=== PATIENT | female | born 1960 | race Two or more races ===

== ENCOUNTER → 2025-02-16 | Outpatient (CLI) | payer MEDICARE, OTHER, SELFPAY ==
--- NOTE | 2025-02-16 08:44 | XR_ITS ---
Examination: PA lateral chest 2 views TECHNIQUE: Upright PA lateral chest 2 views Date and time: February 16, 2025 0923 hours, comparison 03/11/2017 INDICATIONS: Preop bariatric surgery, history hypertension, history right breast cancer mastectomy FINDINGS: Mild enlargement cardiac contour. No pneumonia or pulmonary edema Prominent osteopenia IMPRESSION: Mild enlargement cardiac contour. No pneumonia or pulmonary edema
--- NOTE | 2025-02-16 09:15 | XR_ITS ---
Examination: Upper GI series with KUB Esophagram standard Fluoroscopy 32 spot fluoroscopic films of the esophagus and stomach Date and time: February 16, 2025 0929 hours INDICATIONS: Preop bariatric surgery. TECHNIQUE AND FINDINGS: Rn Plasma Center AP supine abdomen demonstrates moderate stool throughout the colon Patient swallowed thin barium with 32 spot fluoroscopic films of the esophagus stomach and duodenum Fluoroscopy 0.27 minute Numerous secondary and tertiary esophageal contractions, esophageal spasm Moderate intermittent gastroesophageal reflux Stricture at the gastroesophageal junction, presumably reflux esophagitis, 80% Sliding esophageal hernia No gastric mass deformity or ulceration. Duodenal bulb expands symmetrically IMPRESSION: Severe esophageal dysmotility Moderate intermittent gastroesophageal reflux 80% stricture the gastroesophageal junction which may relate to reflux esophagitis, clinical correlation advised. No gastric mass deformity or ulceration Negative for duodenal ulcer
[2025-02-16 10:42] LABS: Misc Send Out* See Sep Rpt
[2025-02-16 12:03] LABS: Basophils # (Auto) 0.1 Thou/mm3 (0.0-0.2); Basophils % (Auto) 1 % (0-2.5); Eosinophils # (Auto) 0.2 Thou/mm3 (0.0-0.5); Eosinophils % (Auto) 3 % (0-10); Hematocrit 41.1 % (36.0-46.0); Hemoglobin 13.6 g/dL (12.0-16.0); Immature Granulocytes Auto 0.03 Thou/mm3 (0.00-0.00); Lymphocytes # (Auto) 2.0 Thou/mm3 (1.0-4.8); Lymphocytes % (Auto) 30 % (10-50); Mean Corpuscular HGB Conc 33.1 g/dl (31.0-37.0); Mean Corpuscular Hemoglobin 34.0 pg (25.0-35.0); Mean Corpuscular Volume 103 fL (80-100); Monocytes # (Auto) 0.5 Thou/mm3 (0.0-0.8); Monocytes % (Auto) 7 % (0-12); Neutrophils # (Auto) 4.0 Thou/mm3 (1.8-7.7); Neutrophils % (Auto) 59 % (37-80); Nucleated Red Blood Cell # 0.00 Thou/mm3 (0.00-0.00); Nucleated Red Blood Cell % 0 /100 WBC (0); Platelet Count 175 Thou/mm3 (140-440); RDW Standard Deviation 52.3 fL (36.4-46.3); Red Blood Count 4.00 Miln/mm3 (4.00-5.20); White Blood Count 6.8 Thou/mm3 (3.6-11.0)
[2025-02-16 12:11] LABS: Glucose Estimated Average 123 mg/dL (80-131); Hemoglobin A1C 5.9 % Hgb (4.8-6.0)
[2025-02-16 12:12] LABS: INR 1.2 (0.9-1.3); Partial Thromboplastin Time 31.4 Seconds (22.0-36.0); Prothrombin Time 12.7 Seconds (9.0-12.2)
[2025-02-16 12:15] LABS: Parathyroid Hormone Intact 29.4 pg/ml (18.5-88.0)
[2025-02-16 12:21] LABS: Alanine Aminotransferase 18 U/L (10-49); Albumin, Serum 4.4 gm/dL (3.4-4.8); Albumin/Globulin Ratio 1.9 (1.2-2.2); Alkaline Phosphatase 69 U/L (46-116); Anion Gap 9 (7-16); Aspartate Amino Transferase 23 U/L (0-34); BUN/Creatinine Ratio 14 Ratio (12-20); Bilirubin,Total 0.5 mg/dL (0.3-1.2); Blood Urea Nitrogen 20 mg/dL (9-23); Calcium 10.7 mg/dL (8.3-10.6); Calcium (Corrected) 10.7 mg/dL (8.5-10.1); Carbon Dioxide 31.7 mMol/L (20.0-31.0); Cardiac Risk Estimate 4.9 RATIO (3.7-5.6); Chloride 103 mMol/L (98-107); Cholesterol 224 mg/dL (132-200); Creatinine (Component) 1.4 mg/dL (0.6-1.3); Free T4 (Free Thyroxine) 1.46 ng/dL (0.89-1.76); Globulin 2.3 gm/dL (2.3-3.5); Glucose 96 mg/dL (74-106); HDL Cholesterol 46 mg/dL (40-60); LDL Cholesterol,Calculated 135 mg/dL (0-130); Osmolality,Calculated 289 (275-295); Potassium 4.1 mMol/L (3.4-5.1); Sodium 144 mMol/L (136-145); Thyroid Stimulating Hormone 3.97 uIU/mL (0.55-4.78); Total Protein 6.7 gm/dL (5.7-8.2); Triglycerides 213 mg/dL (30-150); eGFR 41 See Note
[2025-02-16 12:38] LABS: Iron 78 mcg/dL (50-170); Percent Iron Saturation 25 % (20-55); Total Iron Binding Capacity 307 mcg/dL (250-425); Unsaturated Iron Binding 229 (225-295)
[2025-02-16 12:55] LABS: Folate > 24.00 ng/mL (>5.38); Vitamin B12 693 pg/mL (211-911); Vitamin D 25 Hydroxy Total 56.7 ng/mL (7.3-40.2)
[2025-02-23 07:01] LABS: Direct LDL* 132 mg/dL (<100); Vitamin B1 (Thiamine)* 21 nmol/L (8-30)
== END | disposition home or self-care (01) ==
LOC: CDIM 09:28 → COPL 10:08
PROVIDERS: PCP Family Medicine; Referring Provider Surgery; Visit Provider Radiology Diagnostic Radiology
DX: K21.9 Gastro-esophageal reflux disease without esophagitis (principal); I11.9 Hypertensive heart disease without heart failure; E66.01 Morbid (severe) obesity due to excess calories; Z68.39 Body mass index [BMI] 39.0-39.9, adult; E11.9 Type 2 diabetes mellitus without complications; Z98.84 Bariatric surgery status
CPT/HCPCS: 36415; 71046; 74240; 80053; 80061; 82306; 82607; 82746; 83036; 83540; 83550; 83721; 83970; 84425; 84439; 84443; 84466; 85025; 85610; 85730; A4649